=== PATIENT | male | born 1970 | race Caucasian/White ===

== ENCOUNTER → 2016-12-15 | Outpatient (CLI) | payer BC ==
[~2016-12-15] VITALS: Ht 185.4 cm; Wt 113.4 kg
[~2016-12-15] MED LIST: CHANTIX0.5 MG PO; MOTRIN800 MG PO; VIAGRA100 MG PO
== END | disposition home or self-care (01) ==
LOC: AMB 12:25
PROC: 0DJD8ZZ Inspection of Lower Intestinal Tract, Via Natural or Artificial Opening Endoscopic (ICD-10-PCS; principal; 2016-12-15)
DX: K64.9 Unspecified hemorrhoids (principal); K21.9 Gastro-esophageal reflux disease without esophagitis; Z87.891 Personal history of nicotine dependence